=== PATIENT | female | born 1975 | race Hispanic/Latino ===

== ENCOUNTER 2019-02-25 17:04 | Emergency (ER) | payer OTHER ==
[~2019-02-25] VITALS: Ht 144.8 cm; Wt 63.5 kg
--- OUTSIDE RECORDS SUMMARY | 2019-02-25 17:07 | XMS REPORT | Clinical Summary ---
Author Author [facility] Organization [facility] Address Unknown Phone Unavailable Care Team Providers Care Institution Librarian Name Role Phone Geovanny Montilla MD PCP Mag Multani 7 Allergies Comments Active Allergy Reactions Severity Noted Date When took triple mix (pt c/o breathing problem) unsure of which ingredient caused the allergies ?? Lidocaine Breathing 09/02/2018 problems When took triple mix (pt c/o breathing problem) unsure of which ingredient caused the allergies ?? Aluminum-Magnesium Breathing 09/02/2018 Hydroxide problems "I had reflux" Nsaids (Non-Steroidal 08/03/2009 Anti-Inflammatory Drug) Omeprazole Breathing Medium 06/30/2014 problems, Palpitations Medications End Date Status Medication Sig Dispensed Refills Start Date Active 1 mL diphenhydrAMINE Take 10 mL by 200 mL 1 syrup-1 mL lidocaine mouth 3 times 8 mucosal solution-1 mL daily. dagcwotlj-xgsfxdwo-llphxy vijaya-simethicone oral suspension-CMPDIndication s: Gastroesophageal reflux disease, esophagitis presence not specified Active EPINEPHrine 0.3 mg/0.3 mL Inject 1 1 Package 0 injectionIndications: syringe into 8 Allergic reaction, the muscle as initial encounter needed for severe allergic reaction Active famotidine (PEPCID) 20 mg Take 1 tablet 60 tablet 3 tabletIndications: by mouth 2 9 Gastroesophageal reflux times daily. disease without esophagitis Active azithromycin (ZITHROMAX) Take 2 6 tablet 0 250 mg tabletIndications: tablets by 9 Acute bronchitis, mouth on the unspecified organism first day, then take one tablet every day for the next 4 days. Active loratadine (CLARITIN) 10 Take 1 tablet 30 tablet 3 mg tabletIndications: by mouth 9 Chest congestion daily. 07/24/2018 Discontinued cetirizine (ZYRTEC) 10 mg Take 1 tablet 30 tablet 3 tabletIndications: by mouth 8 Allergic rhinitis, daily. unspecified seasonality, unspecified trigger 09/02/2018 Discontinued fluticasone (FLONASE) 50 Use 1 [place] 16 g 1 mcg/actuation nasal in each 8 sprayIndications: nostril Allergic rhinitis, daily. unspecified seasonality, unspecified trigger 09/02/2018 Discontinued hydrocortisone-pramoxine Apply 10 g 0 (EPIFOAM) 1-1 % topical rectally to 8 foamIndications: Rectal affected area itching 3 to 4 times daily. 04/03/2018 polyethylene glycol Mix 17 grams 527 g 0 (MIRALAX) 17 gram/dose into 4 to 8 8 oral powderIndications: ounces of Constipation, unspecified water, juice, constipation type tea or coffee and drink as directed, one time a day (label in [place]). 11/09/2018 Discontinued famotidine (PEPCID) 40 mg Take 0.5 90 tablet 1 tabletIndications: tablets by 8 Gastroesophageal reflux mouth daily disease, esophagitis nepalese. presence not specified 07/26/2018 diphenhydrAMINE (BENADRYL Take 10 mL by 1 Bottle 0 ALLERGY) 12.5 mg mouth 4 times 8 syrupIndications: daily as Allergic reaction, needed for up initial encounter to 10 days for Allergies. 07/28/2018 Discontinued EPINEPHrine 0.1 mg/0.1 mL by Injection 1 Syringe 0 AtInIndications: Allergic route. 8 reaction, initial encounter 07/24/2018 Discontinued benzonatate (TESSALON) Take 1 20 capsule 0 200 mg capsule by 8 capsuleIndications: Viral mouth 3 times URI with cough daily as needed for up to 7 days for Cough. 08/20/2018 Discontinued cetirizine (ZYRTEC) 10 mg Take 1 tablet 30 tablet 0 tabletIndications: Viral by mouth 8 URI with cough daily. 08/04/2018 benzonatate (TESSALON Take 1 20 capsule 0 PERLES) 100 mg capsule by 8 capsuleIndications: Viral mouth 3 times URI with cough daily as needed for up to 7 days for Cough. 07/31/2018 Discontinued EPINEPHrine 0.1 mg/0.1 mL by Injection 1 Syringe 0 AtInIndications: Allergic route. 8 reaction, initial encounter 08/31/2018 amoxicillin-clavulanate Take 1 tablet 20 tablet 0 (AUGMENTIN) 875-125 mg by mouth 2 8 per tabletIndications: times daily Streptococcal sore for 10 days. throat, Bilateral acute serous otitis media, recurrence not specified 08/31/2018 ofloxacin (FLOXIN) 0.3 % Instill 5 5 mL 0 otic solutionIndications: Drops in 8 Bilateral acute serous right ear otitis media, recurrence daily for 10 not specified days. 11/09/2018 Discontinued cetirizine (ZYRTEC) 10 mg Take 1 tablet 30 tablet 0 tabletIndications: by mouth 8 Streptococcal sore daily. throat, Cough 08/27/2018 benzonatate (TESSALON Take 2 20 capsule 0 PERLES) 100 mg capsules by 8 capsuleIndications: mouth 3 times Streptococcal sore daily as throat, Cough needed for up to 7 days for Cough. 11/19/2018 amoxicillin-clavulanate Take 1 tablet 20 tablet 0 (AUGMENTIN) 500-125 mg by mouth 2 9 per tabletIndications: times daily Acute bronchitis, for 10 days. unspecified organism 02/11/2019 Discontinued famotidine (PEPCID) 40 mg Take 0.5 45 tablet 1 tabletIndications: tablets by 9 Gastroesophageal reflux mouth daily disease, esophagitis nepalese. presence not specified 02/11/2019 Discontinued cetirizine (ZYRTEC) 10 mg Take 1 tablet 90 tablet 1 tabletIndications: Acute by mouth 9 bronchitis, unspecified daily. organism 01/02/2019 azithromycin (ZITHROMAX) Take 2 6 Each 0 250 mg tabletIndications: tablets by 9 Acute upper respiratory mouth on the infection first day, then take one tablet every day for the next 4 days. 01/12/2019 benzonatate (TESSALON Take 1 45 capsule 1 JDKHURRAM) 100 mg capsule by 9 capsuleIndications: Cough mouth 3 times daily as needed for up to 15 days for Cough. Active Problems Problem Noted Date Atypical squamous cells of undetermined significance (ASCUS) on 08/10/2016 Papanicolaou smear of cervix Overview: Negative HPV Pelvic pain 11/22/2015 Costochondritis 08/05/2014 Folliculitis 04/25/2011 Well woman exam with routine gynecological exam 04/16/2010 GERD (gastroesophageal reflux disease) 08/10/2009 HLD (hyperlipidemia) Allergic reaction Encounters Care Team Description Date Type Specialty 02/25/2019 Travel Radha Rossi RN 02/25/2019 Nurse Triage Geovanny Montilla III, MD Acute bronchitis, unspecified organism; Chest congestion 02/11/2019 Ancillary Radiology Procedure Geovanny Montilla III, MD Acute bronchitis, unspecified organism (Primary Dx); Gastroesophageal reflux disease without esophagitis; Chest congestion; Cough 02/11/2019 Office Visit Family Practice 02/11/2019 Travel Randell Nagel MD Acute upper respiratory infection (Primary Dx); Cough; Sore throat; Nasal congestion; Otalgia of both ears 12/25/2018 Same Day Family Practice 12/25/2018 Travel Geovanny Montilla III, MD Acute bronchitis, unspecified organism 11/09/2018 Ancillary Radiology Procedure Geovanny Montilla III, MD Needs flu shot (Primary Dx); Abdominal pain, unspecified abdominal location; Acute bronchitis, unspecified organism; Gastroesophageal reflux disease, esophagitis presence not specified 11/09/2018 Office Visit Family Practice Bhumi West Interpretation 11/09/2018 Telephone 11/09/2018 Travel Lorena Shepherd Oropharyngeal dysphagia (Primary Dx) 10/05/2018 Hospital Speech Therapy Encounter Geovanny Montilla III, MD Dysphagia, unspecified type 10/05/2018 Hospital Radiology Encounter Carri Rosales Interpretation 10/05/2018 Telephone 10/05/2018 Travel Terrie Rosario NP Negash, Rediate G, NP Allergic reaction to drug, initial encounter (Primary Dx) 09/02/2018 Same Day Family Practice Geovanny Montilla III, MD 08/26/2018 Ancillary Radiology Procedure Prisca Calloway NP Streptococcal sore throat (Primary Dx); Bilateral acute serous otitis media, recurrence not specified; Cough 08/20/2018 Same Day [facility] Carri Rosales Interpretation 08/20/2018 Telephone Geovanny Montilla III, MD Allergic reaction, initial encounter 07/29/2018 Refill [facility] Geovanny Montilla III, MD Allergic reaction, initial encounter 07/28/2018 Refill [facility] Sabra Norman PA Viral URI with cough (Primary Dx); Language barrier 07/24/2018 Same Day [facility] Miguelina oLuis MD Allergic reaction, initial encounter (Primary Dx) 07/16/2018 Emergency Emergency Medicine Geovanny Montilla III, MD Dysphagia, unspecified type 07/13/2018 Ancillary Radiology Procedure Geovanny Montilla III, MD Preventative health care (Primary Dx); Dysphagia, unspecified type; Gastroesophageal reflux disease, esophagitis presence not specified 07/13/2018 Office Visit [facility] Modesta Steinberg, RN 06/26/2018 Nurse Triage Randell Nagel MD Gastroesophageal reflux disease, esophagitis presence not specified (Primary Dx) 04/25/2018 Same Day [facility] Jane Bates NP Vaginal itching (Primary Dx); Vaginal discharge; Rectal itching; Constipation, unspecified constipation type 03/02/2018 Office Visit [facility] after 02/24/2018 Immunizations Name Dates Previously Given Next Due Influenza Vaccine 09/02/2018 (Deferred: Contraindication) Influenza, 11/09/2018 (Deferred: Patient Refused) Vaccine<FLUCELVAX>(Multi- Dose) Tdap Tetanus, diphtheria, 03/01/2013 acellular pertussis Vaccine Family History Medical History Relation Name Comments Hypertension Father Diabetes Maternal Grandmother Hypertension Mother Asthma Sister Asthma Son Relation Name Status Comments Father Maternal Grandmother Mother Sister Son Social History Date Tobacco Use Types Packs/Day Years Used Never Smoker Smokeless Tobacco: Never Used Tobacco Cessation: Counseling Given: No Alcohol Use Drinks/Week oz/Week Comments No Sex Assigned at Date Recorded Not on file Industry Job Start Date Occupation Not on file Not on file Not on file Travel End Travel History Travel Start No recent travel history available. 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 Oxygen Saturation 99% - Inhaled Oxygen - Concentration 02/11/2019 7:47 AM CDT Weight 64.9 kg (143 lb) 02/11/2019 7:47 AM CDT Height 146.2 cm (4' 9.56") 02/11/2019 7:47 AM CDT Body Mass Index 30.35 Plan of Treatment Care Team Description Date Type Specialty Geovanny Montilla III, MD [address] [place] [address] [id number] [place] [address] [phone] 1 week lab follow up 03/02/2019 Office Visit [facility] Health Maintenance Due Date Last Done Comments Breast Cancer Scrn 08/26/2019 08/26/2018, 08/22/2017, 12/06/2015, (Yearly) Additional history exists Cervical Cancer Scrn (3 07/22/2020 07/22/2017, 07/26/2016, 12/10/2012, Yrs) Additional history exists Goals Goal Patient Associated Recent Progress Patient-Stat Author Goal Type Problems ed? 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 ELECTRICAL TECHNICIAN unspecified organism XRAY MODIFIED BARIUM Routine 10/05/2018 Dysphagia, unspecified SWALLOW W CINE/VIDEO 12:12 PM AVIATION ELECTRICAL TECHNICIAN type (MBS) MAMMOGRAM BILAT SCREEN Routine 08/26/2018 Preventative health care DIGITAL 11:44 AM CDT XRAY CHEST 2 VIEWS Routine 07/13/2018 Dysphagia, unspecified 12:57 PM CDT type HEPATITIS PANEL Routine 07/13/2018 Dysphagia, unspecified 11:51 AM CDT type HIV-1/HIV-2 ROUTINE Routine 07/13/2018 Dysphagia, unspecified SCREENING 11:51 AM CDT type LIVER PROFILE Routine 07/13/2018 Dysphagia, unspecified 11:51 AM CDT type UREA NITROGEN/CREA Routine 07/13/2018 Dysphagia, unspecified 11:51 AM CDT type LIPID PROFILE Routine 07/13/2018 Dysphagia, unspecified 11:51 AM CDT type GLUCOSE Routine 07/13/2018 Dysphagia, unspecified 11:51 AM CDT type CBC/DIFF Routine 07/13/2018 Dysphagia, unspecified 11:51 AM CDT type ELECTROLYTES Routine 07/13/2018 Dysphagia, unspecified 11:51 AM CDT type CHLAM/GC DNA AMPLI Routine 03/02/2018 Vaginal itching 4:01 PM CDT Vaginal discharge [place] STAT 03/02/2018 Vaginal itching 4:01 PM CDT Vaginal discharge FELIX STAIN STAT 03/02/2018 Vaginal itching 4:01 PM CDT Vaginal discharge after 02/24/2018 Results * XRAY CHEST 2 VIEWS (02/11/2019 9:07 AM CDT) Only the most recent of 3 results within the time period is included. Impressions Performed At IMPRESSION: SMS 1.No radiographic evidence of infectious thoracic process. 2.Intervally improved bibasilar atelectasis. 3.Well-circumscribed radiopacity projects at the soft tissues of right neck is nonspecific. Recommend correlation with clinical evaluation to assess for soft tissue abnormality. If the report is "FINALIZED" it indicates that the attending/staff radiologist has reviewed the images and agrees with the resident's interpretation. Dictated By: Saúl Hall MD, 02/11/2019 11:19 AM I have reviewed the study and agree with the findings in this report. Signed By: Diogenes Rosenberg DO, 02/11/2019 11:27 AM Narrative Performed At EXAMINATION:XRAY CHEST 2 VIEWS SMS INDICATION: cough COMPARISON:Chest x-ray dated 11/09/2018. FINDINGS: TUBES and LINES:None. LUNGS:Lungs are well inflated.Interval improved bibasilar airspace opacities. There is no evidence of pneumonia or pulmonary edema. PLEURA:No pleural effusion or pneumothorax. HEART AND MEDIASTINUM:The cardiomediastinal silhouette is unremarkable. BONES AND SOFT TISSUES:No acute osseous lesion.Well-circumscribed opacity projects over the soft tissues of the right neck and may represent overlying artifact. UPPER ABDOMEN: No free air under the diaphragm. Procedure Note Interface, Rad/Mammog In - 02/11/2019 11:32 AM CDT EXAMINATION: XRAY CHEST 2 VIEWS INDICATION: cough COMPARISON: Chest x-ray dated 11/09/2018. FINDINGS: TUBES and LINES: None. LUNGS: Lungs are well inflated. Interval improved bibasilar airspace opacities. There is no evidence of pneumonia or pulmonary edema. PLEURA: No pleural effusion or pneumothorax. HEART AND MEDIASTINUM: The cardiomediastinal silhouette is unremarkable. BONES AND SOFT TISSUES: No acute osseous lesion. Well-circumscribed opacity projects over the soft tissues of the right neck and may represent overlying artifact. UPPER ABDOMEN: No free air under the diaphragm. IMPRESSION IMPRESSION: 1. No radiographic evidence of infectious thoracic process. 2. Intervally improved bibasilar atelectasis. 3. Well-circumscribed radiopacity projects at the soft tissues of right neck is nonspecific. Recommend correlation with clinical evaluation to assess for soft tissue abnormality. If the report is "FINALIZED" it indicates that the attending/staff radiologist has reviewed the images and agrees with the resident's interpretation. Dictated By: Saúl Hall MD, 02/11/2019 11:19 AM I have reviewed the study and agree with the findings in this report. Signed By: Diogenes Rosenberg DO, 02/11/2019 11:27 AM Performing Organization Address City/State/Zipcode Phone Number SMS * XRAY MODIFIED BARIUM SWALLOW W CINE/VIDEO (MBS) (10/05/2018 12:12 PM AVIATION ELECTRICAL TECHNICIAN) Impressions Performed At IMPRESSION: SMS 1. Normal Modified Barium Swallow. 2. Suboptimal opening of upper esophageal sphincter, as on 12/22/12, likely result of chronic reflux. This is the finding which explains patient's globus sensation.. Signed By: Brittayn Roth MD, 10/06/2018 10:31 AM Narrative Performed At EXAM: XRAY MODIFIED BARIUM SWALLOW W CINE/VIDEO [place] [place] [facility] DATE: 10/05/2018 12:12 PM INDICATION: dysphagia. ADDITIONAL INFORMATION: globus sensation COMPARISON: UGI exam 12/22/12 TECHNIQUE: Video fluoroscopy was done with patientupright, lateral projection, during swallowing of various consistencies of barium with speech therapist in attendance FINDINGS: There was no analia-pharyngeal dysmotility or penetration/aspiration of contrast into the airway. The upper esophageal sphincter opening is suboptimal, and this is usually secondary to chronic reflux. However, the sphincter opening is proportionate to the bolus sizeand there is no contrast overflow into the airway. Procedure Note Interface, Rad/Mammog In - 10/06/2018 10:36 AM AVIATION ELECTRICAL TECHNICIAN EXAM: XRAY MODIFIED BARIUM SWALLOW W CINE/VIDEO ([facility] [place] DATE: 10/05/2018 12:12 PM INDICATION: dysphagia. ADDITIONAL INFORMATION: globus sensation COMPARISON: UGI exam 12/22/12 TECHNIQUE: Video fluoroscopy was done with patient upright, lateral projection, during swallowing of various consistencies of barium with speech therapist in attendance FINDINGS: There was no analia-pharyngeal dysmotility or penetration/aspiration of contrast into the airway. The upper esophageal sphincter opening is suboptimal, and this is usually secondary to chronic reflux. However, the sphincter opening is proportionate to the bolus size and there is no contrast overflow into the airway. IMPRESSION IMPRESSION: 1. Normal Modified Barium Swallow. 2. Suboptimal opening of upper esophageal sphincter, as on 12/22/12, likely result of chronic reflux. This is the finding which explains patient's globus sensation. . Signed By: Brittany Roth MD, 10/06/2018 10:31 AM Performing Organization Address City/State/Zipcode Phone Number SMS * MAMMOGRAM BILAT SCREEN DIGITAL (08/26/2018 11:44 AM CDT) Impressions Performed At IMPRESSION: BENIGN SMS There is no mammographic evidence of malignancy. A 1 year screening mammogram is recommended. This document has been electronically signed. Mesha berger/john:08/26/2018 11:57:54 Manager [facility]: Benign Exam Mammogram BI-RADS: 2 Benign G0202 z12.31 Narrative Performed At #[id number] - MAMMOGRAM BILAT SCREEN DIGITAL SMS BILATERAL DIGITAL SCREENING MAMMOGRAM WITH CAD: 08/26/2018 CLINICAL: Screen. Comparison is made to exams dated:08/22/2017 [facility], 12/06/2015 [facility], 03/17/2013, and 12/29/2012 [facility]. The tissue of both breasts is heterogeneously dense. This may lower the sensitivity of mammography. Current study was also evaluated with a Computer Aided Detection (CAD) system. No significant masses, calcifications, or other findings are seen in either breast. There has been no significant interval change. Procedure Note Interface, Rad/Mammog In - 08/26/2018 12:04 PM CDT #[id number] - MAMMOGRAM BILAT SCREEN DIGITAL BILATERAL DIGITAL SCREENING MAMMOGRAM WITH CAD: 08/26/2018 CLINICAL: Screen. Comparison is made to exams dated: 08/22/2017 [facility], 12/06/2015 [facility], 03/17/2013, and 12/29/2012 [facility]. The tissue of both breasts is heterogeneously dense. This may lower the sensitivity of mammography. Current study was also evaluated with a Computer Aided Detection (CAD) system. No significant masses, calcifications, or other findings are seen in either breast. There has been no significant interval change. IMPRESSION IMPRESSION: BENIGN There is no mammographic evidence of malignancy. A 1 year screening mammogram is recommended. This document has been electronically signed. Mesha berger/jonh:08/26/2018 11:57:54 Manager Payment: Jamila Black, [facility] letter sent: Benign Exam Mammogram BI-RADS: 2 Benign G0202 z12.31 Performing Organization Address City/State/Zipcode Phone Number SMS * HIV-1/HIV-2 ROUTINE SCREENING (07/13/2018 11:51 AM CDT) HIV-1/HIV-2 Negative NEG BT MAIN-STATION 4 Performing Organization Address City/[facility]/Zipcode Phone Number MISYS BT MAIN-STATION 4 * ELECTROLYTES (07/13/2018 11:51 AM CDT) Sodium 137 136 - 145 mmol/L BT MAIN-STATION 1 Potassium 4.0 3.5 - 5.1 mmol/L BT MAIN-STATION 1 Chloride 102 98 - 107 mmol/L BT MAIN-STATION 1 CO2 27 21 - 31 mmol/L BT MAIN-STATION 1 Anion Gap 8 BT MAIN-STATION 1 Specimen Blood Performing Organization Address [facility] Phone Number [facility] * LIVER PROFILE (07/13/2018 11:51 AM CDT) T Protein 7.5 6.0 - 8.3 g/dL BT MAIN-STATION 1 Albumin 4.6 3.7 - 5.3 g/dL BT MAIN-STATION 1 T Bilirubin 0.6 0.2 - 1.2 mg/dL BT MAIN-STATION 1 Alk Phos 76 34 - 104 U/L BT MAIN-STATION 1 AST 15 13 - 39 U/L BT MAIN-STATION 1 ALT 11 7 - 52 U/L BT MAIN-STATION 1 D Bilirubin 0.1 0.0 - 0.2 mg/dL BT MAIN-STATION 1 Specimen Blood Performing Organization Address [facility] [place] Phone Number [facility] BT MAIN-STATION 1 * LIPID PROFILE (07/13/2018 11:51 AM CDT) Pathologist [facility] Cholesterol 165 mg/dL BT MAIN-STATION Comment: 1 REFERENCE RANGE: Desirable: <200 mg/dL Borderline: 200-240 mg/dL High Risk: >240 mg/dL Triglyceride 152 (H) <150 mg/dL BT MAIN-STATION Comment: 1 REFERENCE RANGE: Normal: <150 mg/dL Borderline High: 150-199 mg/dL High: 200-499 mg/dL Very High: >nx=961 mg/dL HDL 50 mg/dL BT MAIN-STATION Comment: 1 Increased CHD risk: <40 mg/dL Decreased CHD risk: >60 mg/dL LDL 85 mg/dL BT MAIN-STATION Comment: 1 REFERENCE RANGE: Optimal: <100 mg/dL Near Optimal: 100-129 mg/dL Borderline High: 130-159 mg/dL High: 160-189 mg/dL Very High: >lq=575 mg/dL Specimen Blood Performing Organization Address [facility] [place] Phone Number [facility] 1 * HEPATITIS PANEL (07/13/2018 11:51 AM CDT) HCV IgG Negative NEG BT MAIN-STATION 4 HBsAg Negative NEG BT MAIN-STATION 4 HAV, IgM Negative NEG BT MAIN-STATION 4 HBcAb, IgM Negative NEG BT MAIN-STATION 4 Specimen Blood Performing Organization Address City/[facility]/Zipcode Phone Number MISYS BT MAIN-STATION 4 * GLUCOSE (07/13/2018 11:51 AM CDT) Glucose 91 70 - 110 mg/dL BT MAIN-STATION 1 Specimen Blood Performing Organization Address [facility] Phone Number MISYS BT MAIN-ST[facility] 1 * CBC/DIFF (07/13/2018 11:51 AM CDT) WBC 9.3 4.5 - 11.0 K/uL BT MAIN-STATION 2 RBC 4.60 4.20 - 5.40 M/uL BT MAIN-STATION 2 Hemoglobin 13.1 12.0 - 16.0 g/dL BT MAIN-STATION 2 Hematocrit 42.1 37.0 - 47.0 % BT MAIN-STATION 2 MCV 92 82 - 92 fL BT MAIN-STATION 2 MCH 28.5 27.0 - 32.0 pg BT MAIN-STATION 2 MCHC 31.1 (L) 32.0 - 36.0 g/dL BT MAIN-STATION 2 RDW 53.1 (H) 36.4 - 46.3 fL BT MAIN-STATION 2 Platelet 290 150 - 400 K/uL BT MAIN-STATION 2 Mean Platelet 11.7 9.4 - 12.4 fL BT MAIN-STATION Volume 2 Percent NRBC 0.0 BT MAIN-STATION 2 Absolute NRBC 0.00 BT MAIN-STATION 2 Neutrophil 59.0 34.0 - 70.0 % BT MAIN-STATION 2 Lymphocyte 34.3 20.0 - 50.0 % BT MAIN-STATION 2 Monocyte 5.7 5.0 - 12.0 % BT MAIN-STATION 2 Eosinophil 0.4 (L) 0.7 - 5.0 % BT MAIN-STATION 2 Basophil 0.3 0.1 - 1.2 % BT MAIN-STATION 2 Pct Immat Gran 0.3 0.0 - 0.5 BT MAIN-STATION 2 Neutrophil, Abs 5.45 1.56 - 6.13 K/uL BT MAIN-STATION 2 Lymphocyte, Abs 3.18 1.18 - 3.74 K/uL BT MAIN-STATION 2 Monocyte, Abs 0.53 (H) 0.24 - 0.36 K/uL BT MAIN-STATION 2 Eosinophil, Abs 0.04 0.04 - 0.36 K/uL BT MAIN-STATION 2 Basophil, Abs 0.03 0.01 - 0.08 K/uL BT MAIN-STATION 2 Absol Immat 0.03 0.00 - 0.03 K/uL BT MAIN-STATION Gran 2 Specimen Blood Performing Organization Address [facility] [place] Phone Number [place] BT MAIN-STATION 2 * UREA NITROGEN/CREA (07/13/2018 11:51 AM CDT) Urea Nitrogen 11 7 - 25 mg/dL BT MAIN-STATION 1 Creatinine 0.60 0.6 - 1.2 mg/dL BT MAIN-STATION 1 GFR, Estimated >60 mL/min/1.73 m2 BT MAIN-STATION 1 GFR, Estim, >60 mL/min/1.73 m2 BT MAIN-STATION Afr-Am 1 Specimen Other (Specify in Comments) Performing Organization Address [facility] [place] Phone Number MISJESSIKA MAIN-STATION 1 * CHLAM/GC DNA AMPLI (03/02/2018 4:01 PM CDT) Chlamydia trach Negative [facility] IMMUNOLOGY N gonorrhoeae Negative BT DIAGNOSTIC This test utilizes [employer] IMMUNOLOGY Aptima Combo 2 Assay for target amplification of rRNA for the qualitative detection of Chlamydia trachomatis and Neisseria gonorrhea. Spec VAGINAL SWAB [facility] Description Specimen Genital, vaginal - Vaginal Swab Performing Organization Address [facility] [place] Phone Number ALMA ROSA BT DIAGNOSTIC IMMUNOLOGY [facility] * WET MOUNT (03/02/2018 4:01 PM CDT) Spec Vaginal [facility] Description Order Comments None [facility] Exam WBC's seen [facility] No Clue cells seen No Trichomonas seen Report Status Final 03/02/2018 [facility] Specimen Genital, vaginal - Vaginal Performing Organization Address [facility] Number [employer] * FELIX STAIN (03/02/2018 4:01 PM CDT) Spec Vaginal [facility] Description Order Comments None [facility] Direct Exam No fungus seen by FELIX [facility] Report Status Final 03/02/2018 [facility] Specimen Genital, vaginal - Vaginal Performing Organization Address [facility] [place] Phone Number ALMA ROSA [facility] after 02/24/2018 Insurance Type Payer Benefit Subscriber ID Effective Phone Address Plan / Dates Group [employer] xxxxxxxxxx 2018-P [phone] [address] [facility] [address] [place] [address] HC PLAN [employer] PLAN xxxxxx 2018- [phone] [id number] [place] [address]
--- OUTSIDE RECORDS SUMMARY | 2019-02-25 17:07 | XMS REPORT ---
Author Author [facility] Address Unknown Phone Unavailable Care Team Providers Care Processor Inspector Name Role Phone Unavailable Unavailable Payers Payer Name Policy Type Policy Number Effective Date Expiration Date Problems This patient has no known problems. Allergies, Adverse Reactions, Alerts Allergy Name Allergy Type Status Severity Reaction(s) Onset Date Inactive Date Treating Clinician Comments aspirin DA Active [place] 2018-11-06 00:00:00 ibuprofen DA Active [place] 2014-06-23 00:00:00 Medications This patient has no known medications. Encounters Start Date/Time End Date/Time Encounter Type Admission Type Attending Clinicians Care Facility Care Department Encounter ID 2019-03-02 00:00:00 2019-03-02 00:00:00 Outpatient [facility] [id number] 2019-02-11 08:50:41 2019-02-11 08:50:41 Outpatient [facility] [id number] 2019-02-11 07:45:40 2019-02-11 07:45:40 Outpatient [facility] [id number] 2018-12-25 14:25:45 2018-12-25 14:25:45 Outpatient [facility] [id number] 2018-11-09 12:47:55 2018-11-09 12:47:55 Outpatient [facility] [id number] 2018-11-09 09:52:27 2018-11-09 09:52:27 Outpatient [facility] [id number] 2018-10-22 00:00:00 2018-10-22 00:00:00 Outpatient [facility] [id number] 2018-10-05 12:10:11 2018-10-05 12:10:11 Outpatient [facility] [id number] 2018-10-05 09:52:03 2018-10-05 09:52:03 Outpatient [facility] [id number] 2018-09-02 10:14:29 2018-09-02 10:14:29 Outpatient [facility] [id number] 2018-08-26 10:28:08 2018-08-26 10:28:08 Outpatient [facility] [id number] 2018-08-20 10:22:32 2018-08-20 10:22:32 Outpatient [facility] [id number] 2018-07-24 08:38:46 2018-07-24 08:38:46 Outpatient [facility] [id number] 2018-07-16 13:32:28 2018-07-16 13:32:28 Emergency [facility] [id number] 2018-07-16 00:00:00 2018-07-16 00:00:00 Outpatient [facility] [id number] 2018-07-16 00:00:00 2018-07-16 00:00:00 Outpatient [facility] [id number] 2018-07-13 12:52:56 2018-07-13 12:52:56 Outpatient [facility] [id number] 2018-07-13 12:50:34 2018-07-13 12:50:34 Outpatient [facility] [id number] 2018-07-13 10:16:07 2018-07-13 10:16:07 Outpatient [facility] [id number] 2018-04-25 08:37:08 2018-04-25 08:37:08 Outpatient [facility] [id number] 2018-03-02 14:51:55 2018-03-02 14:51:55 Outpatient [facility] [id number] 2018-02-17 00:00:00 2018-02-17 00:00:00 Outpatient [facility] [id number] 2018-02-17 00:00:00 2018-02-17 00:00:00 Outpatient [facility] [id number] 2018-01-26 10:46:11 2018-01-26 10:46:11 Outpatient [facility] [id number] 2017-10-16 08:10:13 2017-10-16 08:10:13 Outpatient [facility] [id number] 2017-08-22 09:09:34 2017-08-22 09:09:34 Outpatient [facility] [id number] 2017-07-29 07:53:12 2017-07-29 07:53:12 Outpatient [facility] [id number] 2017-07-22 10:06:24 2017-07-22 10:06:24 [facility] [id number]
[2019-02-25 17:40] LABS: BASOPHILS % 0.3 % (0.0-1.0); EOSINOPHILS % 0.4 % (0.0-6.0); HEMATOCRIT 37.3 % (34.2-44.1); HEMOGLOBIN 12.5 g/dL (12.0-16.0); LYMPHOCYTES # (AUTO) 3.7 (1.0-3.2); LYMPHOCYTES % 34.5 % (18.0-39.1); MEAN CORPUSCULAR HEMOGLOBIN 29.1 pg (28-32); MEAN CORPUSCULAR HGB CONC 33.5 g/dL (31-35); MEAN CORPUSCULAR VOLUME 86.9 fL (81-99); MONOCYTES # (AUTO) 0.7 (0.2-0.8); MONOCYTES % 6.5 % (4.4-11.3); NEUTROPHILS # (AUTO) 6.2 (2.1-6.9); NEUTROPHILS % 57.9 % (38.7-80.0); PLATELET COUNT 254 x10e3/uL (140-360); RED BLOOD COUNT 4.29 x10e6/uL (3.6-5.1); RED CELL DISTRIBUTION WIDTH 15.3 % (11.7-14.4)
[2019-02-25 17:49] LABS: INR 0.91; PROTHROMBIN TIME 12.7 seconds (11.9-14.5)
[2019-02-25 17:50] LABS: PARTIAL THROMBOPLASTIN TIME 28.4 seconds (23.8-35.5)
[2019-02-25 17:59] LABS: ALANINE AMINOTRANSFERASE 20 IU/L (0-55); ALBUMIN 3.9 g/dL (3.5-5.0); ALBUMIN/GLOBULIN RATIO 1.2 (0.8-2.0); ALKALINE PHOSPHATASE 79 IU/L (40-150); ANION GAP 11.6 mmol/L (8-16); BLOOD UREA NITROGEN 15 mg/dL (7-26); BUN/CREATININE RATIO 19 (6-25); CALCIUM 9.1 mg/dL (8.4-10.2); CARBON DIOXIDE 26 mmol/L (22-29); CHLORIDE 103 mmol/L (98-107); CREATINE KINASE 91 IU/L (29-168); CREATININE, SERUM 0.77 mg/dL (0.57-1.11); EST GLOMERULAR FILTRATION RATE > 60 ML/MIN (60-); GLUCOSE 108 mg/dL (74-118); POTASSIUM 3.6 mmol/L (3.5-5.1); SODIUM 137 mmol/L (136-145)
--- NOTE | 2019-02-25 18:08 | Diagnostic Imaging Report ---
EXAMINATION: CHEST 2 VIEWS INDICATION: Chest pain. COMPARISON: None FINDINGS: TUBES and LINES: None. LUNGS: Mild bibasilar subsegmental atelectasis. There is no evidence of pneumonia or pulmonary edema. PLEURA: No pleural effusion or pneumothorax. HEART AND MEDIASTINUM: The cardiomediastinal silhouette is unremarkable. BONES AND SOFT TISSUES: No acute osseous lesion. Soft tissues are unremarkable. UPPER ABDOMEN: No free air under the diaphragm. IMPRESSION: No acute thoracic abnormality. Signed by: Dr. Juan Damian M.D. on 02/25/2019 6:05 PM
--- NOTE | 2019-02-25 19:00 | NUR ---
BEDSIDE REPORT HARJIT Haro
[2019-02-25 20:41] VITALS: BP 104/64
== END 2019-02-25 20:55 | disposition home or self-care (01) ==
LOC: ER 17:04
DX: R07.89 Other chest pain (principal); R00.1 Bradycardia, unspecified
CPT/HCPCS: 36415; 71046; 80053; 82550; 82553; 84484; 85025; 85610; 85730; 93005; 99284

== ENCOUNTER 2019-12-16 16:48 | Emergency (ER) | payer OTHER ==
[~2019-12-16] VITALS: Ht 144.8 cm; Wt 63.5 kg
[2019-12-16 17:20] LABS: BASOPHILS % 0.3 % (0.0-1.0); EOSINOPHILS % 0.2 % (0.0-6.0); HEMATOCRIT 35.9 % (34.2-44.1); HEMOGLOBIN 11.5 g/dL (12.0-16.0); LYMPHOCYTES # (AUTO) 2.6 (1.0-3.2); LYMPHOCYTES % 27.8 % (18.0-39.1); MEAN CORPUSCULAR HEMOGLOBIN 27.1 pg (28-32); MEAN CORPUSCULAR VOLUME 84.7 fL (81-99); MONOCYTES # (AUTO) 0.6 (0.2-0.8); MONOCYTES % 6.3 % (4.4-11.3); NEUTROPHILS % 65.1 % (38.7-80.0); PLATELET COUNT 275 x10e3/uL (140-360); RED BLOOD COUNT 4.24 x10e6/uL (3.6-5.1); RED CELL DISTRIBUTION WIDTH 15.5 % (11.7-14.4)
[2019-12-16 17:45] LABS: ALANINE AMINOTRANSFERASE 14 IU/L (0-55); ALBUMIN 4.1 g/dL (3.5-5.0); ALBUMIN/GLOBULIN RATIO 1.3 (0.8-2.0); ALKALINE PHOSPHATASE 75 IU/L (40-150); ANION GAP 10.5 mmol/L (8-16); BLOOD UREA NITROGEN 9 mg/dL (7-26); BUN/CREATININE RATIO 13 (6-25); CALCIUM 9.3 mg/dL (8.4-10.2); CARBON DIOXIDE 24 mmol/L (22-29); CHLORIDE 107 mmol/L (98-107); CREATININE, SERUM 0.68 mg/dL (0.57-1.11); EST GLOMERULAR FILTRATION RATE > 60 ML/MIN (60-); GLUCOSE 100 mg/dL (74-118); LIPASE 44 U/L (8-78); POTASSIUM 3.5 mmol/L (3.5-5.1); SODIUM 138 mmol/L (136-145)
[2019-12-16 17:46] LABS: BILIRUBIN,URINE NEGATIVE (NEGATIVE); CLARITY,URINE SL CLOUDY (CLEAR); COLOR,URINE YELLOW (YELLOW); KETONES,URINE NEGATIVE (NEGATIVE); LEUKOCYTE ESTERASE ,URINE NEGATIVE (NEGATIVE); NITRITE,URINE NEGATIVE (NEGATIVE); PROTEIN,URINE DIPSTICK NEGATIVE (NEGATIVE); URINE UROBILINOGEN 0.2 mg/dL (0.2 - 1)
[2019-12-16 17:55] LABS: EPITHELIAL CELLS,URINE RARE /LPF
--- NOTE | 2019-12-16 18:06 | Diagnostic Imaging Report ---
EXAM: CHEST 2 VIEWS DATE: 12/16/2019 4:59 PM INDICATION: Shortness of breath ^ORDER PLACED BY ^[id number] ^[id number] ^Y COMPARISON: Chest x-ray, 10/22/2019 FINDINGS: Lines and tubes: None Heart size normal. No focal pulmonary opacity, pleural effusion or pneumothorax. Mild atelectasis at the lung bases. Upper abdomen unremarkable. No acute bony abnormality. IMPRESSION: No evidence for acute disease. Signed by: Dr. Srini Giles M.D. on 12/16/2019 6:03 PM
--- NOTE | 2019-12-16 19:15 | Diagnostic Imaging Report ---
EXAM: CT Abdomen and Pelvis WITH contrast INDICATION: ^RLQ pain COMPARISON: None. TECHNIQUE: Abdomen and pelvis were scanned utilizing a multidetector helical scanner from the lung base to the pubic symphysis after administration of IV contrast. Coronal and sagittal reformations were obtained. Routine protocol was performed. Scan was performed when during portal venous phase. Dose modulation, iterative reconstruction, and/or weight based adjustment of the mA/kV was utilized to reduce the radiation dose to as low as reasonably achievable. IV CONTRAST: 100 mL of Isovue-370 ORAL CONTRAST: Water RADIATION DOSE: Total DLP: 628.29 mGy*cm Estimated effective dose: (DLP x 0.015 x size factor) mSv COMPLICATIONS: None FINDINGS: LINES and TUBES: None. LOWER THORAX: Lung bases clear. Heart size normal. HEPATOBILIARY: There are scattered 2 to 4 mm hypodensities in the right and left lobes of the liver, too small to characterize although the appearance suggests small hepatic cysts. No other focal hepatic lesions. No biliary ductal dilation. GALLBLADDER: No radio-opaque stones or sludge. No wall thickening. SPLEEN: No splenomegaly. PANCREAS: No focal masses or ductal dilatation. ADRENALS: No adrenal nodules KIDNEYS/URETERS: Kidneys enhance symmetrically. No hydronephrosis. No cystic or solid mass lesions. No stones. Prominent extrarenal pelvis on the right. GI TRACT: No abnormal distention, wall thickening, or evidence of bowel obstruction. There is a moderately large volume of retained stool right colon. Appendix is normal. PELVIC ORGANS/BLADDER: Urinary bladder has an unremarkable appearance. The uterus is anteverted with prominence of the endometrium. There is trace free fluid in the pelvis. LYMPH NODES: No dominant lymph node mass is seen in the abdomen, retroperitoneum or pelvis. VESSELS: Abdominal aorta, IVC and portal system appear unremarkable. PERITONEUM / RETROPERITONEUM: No pneumoperitoneum or ascites. BONES: No acute or suspicious bony lesion. There is grade 1 spondylolisthesis of L4 and L5. SOFT TISSUES: Superficial surrounding soft tissue unremarkable. IMPRESSION: 1. No CT evidence for acute abdominal or pelvic pathology. The appendix appears normal. 2. The uterus is prominent in size with likely thickening of the cervix and endometrium. There is trace free fluid in the pelvis. Staff: Tisha Signed by: Dr. Srini Giles M.D. on 12/16/2019 7:12 PM
[2019-12-16 19:34] VITALS: BP 139/89
[2019-12-16] MEDS ORDERED: IOPAMIDOL 370 MG/ML 200 ML INFUS..BTL INJ ONE (20:01)
[2019-12-16] MEDS ORDERED: SODIUM CHLORIDE 0.9% 50ML 50 ML ONE (20:01)
== END 2019-12-16 19:38 | disposition home or self-care (01) ==
LOC: ER 16:48
DX: R10.31 Right lower quadrant pain (principal); R11.0 Nausea; K21.9 Gastro-esophageal reflux disease without esophagitis
CPT/HCPCS: 36415; 71046; 74177; 80053; 81001; 81025; 83690; 83880; 85025; 93005; 99284; Q9967